=== PATIENT | female | born 1995 | race Caucasian/White ===

== ENCOUNTER 2019-11-18 01:30 | Outpatient (CLI) | payer MEDICAID, SELFPAY ==
[2019-11-18 01:42] VITALS: BP 120/71; PULSE 84; BMI 34.4
[2019-11-18 01:51] VITALS: RESP 18; TEMP 36.7
[2019-11-18 02:07] VITALS: BP 0/0
[2019-11-18 02:08] VITALS: BP 127/67; PULSE 94
== END 2019-11-18 02:20 | disposition home or self-care (01) ==
LOC: OPOB 01:38 → OBGYN 02:18 → OPOB 08:17
PROVIDERS: Family Provider Family Medicine; PCP Nurse Practitioner; Visit Provider Family Medicine
DX: O26.899 Other specified pregnancy related conditions, unspecified trimester (principal); Z3A.00 Weeks of gestation of pregnancy not specified; R10.9 Unspecified abdominal pain
CPT/HCPCS: 99211

== ENCOUNTER 2019-11-19 13:41 | Inpatient (IN) | payer MEDICAID, SELFPAY ==
[2019-11-19] VITALS (80 sets, daily range): BP systolic 0–136; BP diastolic 0–81; PULSE 58–128; RESP 17; TEMP 36.5–36.9; O2SAT 99–100; BMI 34.0
[2019-11-19 12:46] LABS: Nitrazine Paper, PH Inconclusive
[2019-11-19 13:22] LABS: Actim Prom Positive
[2019-11-19] MEDS: lactated ringers 1,000 ML 999 ML IV ×2 (14:17→15:31)
[2019-11-19] MEDS: alum-mag-hydroxide-sime 30 mL UDC PO (14:17)
[2019-11-19 15:08] LABS: Basophils % 0.3 %; Eosinophils # 0.1 10^3/uL (0.0-0.8); Eosinophils % 1.1 %; Hematocrit 28.6 % (37.0-47.0); Hemoglobin 8.8 g/dL (11.5-15.3); Lymphocytes # 1.8 10^3/uL (0.8-4.8); Lymphocytes % 15.6 %; Mean Corpuscular HGB Conc 30.8 g/dL (30.0-36.0); Mean Corpuscular Volume 77.9 fL (81-99); Mean Platelet Volume 12.5 fL (7.4-10.4); Monocytes # 0.9 10^3/uL (0.2-0.9); Monocytes % 7.6 %; Neutrophils # 8.4 10^3/uL (1.8-7.7); Neutrophils % 74.6 %; Nucleated Red Blood Cells % 0 %; Platelet Count 223 10^3/cmm (130-400); Red Blood Count 3.67 10^6/uL (4.1-5.3); Red Cell Distribution Width 15.2 % (12.1-15.1); White Blood Count 11.3 10^3/uL (4.0-10.0)
[2019-11-19] MEDS: ondansetron 2 mg/ML SDV 2 mL 4 MG IVP (15:58)
[2019-11-19] MEDS: oxytocin 30 UNIT/500 ML BAG IV (16:01)
--- NOTE | 2019-11-19 16:07 | P.ANESASSM_ITS ---
Pre-Anesthetic Assessment Pre-Anesthetic Assessment: Height/Weight: Height 1.57 m Weight 84.368 kg Temp Pulse Resp BP Pulse Ox 98.2 F 102 H 17 115/66 100 11/19/19 15:35 11/19/19 16:04 11/19/19 11:57 11/19/19 16:04 11/19/19 15:44 Preop Diagnosis: IUP Proposed Procedure: Labor epidural Was Beta James taken within 24 hours: N/A Last intake: 1000 Social: Social History: No alcohol and No tobacco Exam: Pre-Anes Outpt Exam: alert, oriented x 3 and clear to auscultation bilaterally Airway: Submandibular: WNL Cervical ROM: WNL MP: 2 Dentition: Full Pulmonary: Pulmonary: None reported CV/HEM: CV/HEM: None reported : : None reported Hepatic: Hepatic: None reported GI: GI: GERD Metabolic: Metabolic: None reported Musc/skel: Musc/skel: Scoliosis (mild) and None reported Neuropsych: Neuropsych: None reported Anesthetic Plan: ASA status: 2 Anesthesia: Regional (specify below) (epidural) Meds/Allergies Current Medications: Current Medications Generic Name Dose Route Start Last Admin Trade Name Freq PRN Reason Stop Dose Admin Al Hydrox/Mg [place] x/Simethicone 30 ml 11/19/19 13:30 11/19/19 14:17 Maalox PO 30 ml Q4H PRN Administration INDIGESTION Lactated Ringer's 1,000 mls @ 999 m ls/hr 11/19/19 13:30 11/19/19 15:51 Lactated Ringers IV 125 mls/hr .Q1H1M PRN Infusion ANESTHESIA Ondansetron HCl 4 mg 11/19/19 13:30 11/19/19 15:58 Zofran IVP 4 mg Q4H PRN Administration NAUSEA AND VOMITI NG PFSH Anesthesia Female Reproductive History: : 2 Data Anesthesia CBC & Chem 7: 11/19/19 14:17 Other Labs: Laboratory Results - last 48 hr 11/19/19 11/19/19 12:00 14:17 WBC 11.3 H RBC 3.67 L Hgb 8.8 L Hct 28.6 L MCV 77.9 L MCH 24.0 L MCHC 30.8 RDW 15.2 H Plt Count 223 MPV 12.5 H Neut % (Auto) 74.6 Lymph % (Auto) 15.6 [place] % (Auto) 7.6 Eos % (Auto) 1.1 Baso % (Auto) 0.3 Neut # (Auto) 8.4 H Lymph # (Auto) 1.8 [place] # (Auto) 0.9 Eos # (Auto) 0.1 Baso # (Auto) 0.0 Nucleated RBC % (auto) 0 Nucleated RBCs # 0.0 Insulin-like GF I Positive Cardiac Studies: No Data to Display Anesthesia Procedures Epidural: Time Out Performed: Yes Consents Signed: Procedure Consent Consent: from patient, risks and benefits reviewed and patient agrees to proceed Lumbar Level: L3-L4 Epidural position: sitting Epidural procedure: sterile prep of area, 1% lidocaine to numb the area (5), 18 g needle, negative for paresthesia passed, neg for paresthesia, test dose given, 1.5% xylocaine 1:200k epi (5), 0.2% Ropivacaine bolus ml (5), placed PCEA (5cc q10min x 3), no systemic response, sterile dressing applied, L.U.D. no apparent complications and 0.2% Ropiavacaine @ mls/hr (11) Additional Comments: Called to OB for epidural placement, pt evaluated and assessed for placement and explained procedure. Labs reviewed. Pt agrees to proceed. placed to 5cm in space and tolerated well. Bolused over 7 min BP dropped to 83 SBP and nauseated. Given 15mg IV ephedrine. BP returned to baseline per Nursing charted vitals. monitored for 15 more minutes after initial BP stabilization. Last BP 122/63 . Pain much improved.
[2019-11-19] MEDS: famotidine 20 mg Tablet PO (16:52)
--- NOTE | 2019-11-19 19:43 | PC.NURSE ---
Patient placed in left lateral with peanut ball between ankles.
--- NOTE | 2019-11-19 22:45 | P.PCNOB_ITS ---
Delivery Note: Date of delivery: November 19, 2019 Pre-delivery diagnoses: 24-year-old 2 para 1-0-0-1 at 38 weeks estimated gestational age presenting with spontaneous rupture of membranes Post-delivery diagnoses: Status post spontaneous vaginal delivery Procedure: Spontaneous vaginal delivery Op report anesthesia: Epidural Delivering Physician: Napoleon Morejon Estimated blood loss (mL): 50 Delivery: DELIVERY: The patient progressed to complete without difficulty. She delivered a female with a weight of 7 pounds 6 ounces with Apgars of 9, 10. The baby was delivered from t The cord was then clamped and cut approximately 60 seconds after delivery.. There was no nuchal cord. There was no meconium. The placenta and 3 vessel cord were delivered intact shortly thereafter. The perineum and vaginal vault were carefully examined. No lacerations were noted. Both the mother and the baby were in stable condition. Post-Delivery Status: Good Coding Level of Care Code Acute Dater Assembler for Ganesh Hagen
[2019-11-20] VITALS (18 sets, daily range): BP systolic 0–127; BP diastolic 0–80; PULSE 83–102; RESP 16–18; TEMP 36.3–36.8; O2SAT 97–98
[2019-11-20] MEDS: HYDROcodone-acetaminophen 5-325 mg Tablet PO ×5 (01:31→22:34)
[2019-11-20] MEDS: ferrous sulfate EC 325 mg Tablet PO (08:14)
[2019-11-20] MEDS: docusate sodium 100 mg Capsule PO ×2 (08:15→17:53)
[2019-11-20] MEDS: prenatal vitamin Capsule 1 CAP PO (08:15)
[2019-11-20] MEDS: famotidine 20 mg Tablet PO (09:25)
--- NOTE | 2019-11-20 10:09 | PM.OBGYPN ---
SEISMOMETER OPERATOR Subjective Subjective: Interval history: The patient is doing very well. Her bleeding has been appropriate. Her pain has been reasonably well controlled. She is breast-feeding reasonably. She is getting some assistance from the consultants. She has no concerns. Labor: Station: +1 Amniotic Membrane Status: Ruptured Monitor Mode: External Contraction Pattern: Regular Status: Category l Vitals/I&O/Wt Last Vital Signs Temp 97.4 F L 11/20/19 08:46 Pulse 101 H 11/20/19 08:46 Resp 18 11/20/19 08:46 BP 110/80 11/20/19 08:46 Pulse Ox 98 11/20/19 08:46 11/19/19 11/20/19 11/20/19 22:59 06:59 14:59 Intake Total 1351.567 / 1351.567 Output Total 2100 / 2100 Balance 1351.567 / 1351.567 -2100 / -748.433 Weight last 48 hrs Weight 186 lb Physical Exam Narrative: EXAM NARRATIVE: The patient is alert. She appears comfortable. Her heart has a regular rate and rhythm with no murmurs appreciated. Lungs are clear to auscultation bilaterally. Her fundus is firm and below the umbilicus. Urinary Catheter Management^: Mota: Cath Placed During This Visit: yes Reason for Continuing Indwelling Catheter: Accurate Measurement of Urinary Output in Critically Ill Patients Urinary Catheter Date of Insertion: 11/19/19 Urinary Catheter Time of Insertion: 16:50 Data : 11/19/19 14:17 Attestations Medical Necessity Statement*: Routine care. I anticipate she will be discharged tomorrow. Coding Level of Care Code Acute Machine Sizer for Ganesh Hagen
[2019-11-20 10:51] LABS: Hematocrit 27.2 % (37.0-47.0); Hemoglobin 8.3 g/dL (11.5-15.3); Mean Corpuscular HGB Conc 30.5 g/dL (30.0-36.0); Mean Corpuscular Hemoglobin 24.2 pg (28.0-34.0); Mean Corpuscular Volume 79.3 fL (81-99); Mean Platelet Volume 12.3 fL (7.4-10.4); Platelet Count 201 10^3/cmm (130-400); Red Blood Count 3.43 10^6/uL (4.1-5.3); Red Cell Distribution Width 15.1 % (12.1-15.1); White Blood Count 12.6 10^3/uL (4.0-10.0)
--- NOTE | 2019-11-20 13:38 | PC.NURSE ---
Nurse called to patient room for request of pain medication. Pain medication was brought to the patient's room, and patient stated she was having pain on her whole right side, that wasn't getting better even with the medication. This real estate underwriter palpated patient's right abdomen, and questioned if the palpation was hurting. Patient expressed the palpation of her abdomen was causing pain, and that it was hurting more when the palpation was released than when pressure was applied. Palpated patient's right side of her back, where she expressed pain upon palpation.
[2019-11-21 05:15] VITALS: BP 128/86; PULSE 87; RESP 18; TEMP 36.7; O2SAT 98
[2019-11-21] MEDS: HYDROcodone-acetaminophen 5-325 mg Tablet PO ×2 (05:18→09:52)
--- NOTE | 2019-11-21 06:31 | CT_ITS ---
WS: [id number] CT scan of the abdomen and pelvis with IV contrast. Additional two-dimensional coronal and sagittal r econstruction was performed. 11/21/2019 Clinical Data: RLQ rebound tenderness Comparison: None. DLP: 814.[address] scans at [facility] use at least one of these dose optimization techniques: automat ed exposure control; mA and/or kV adjustment per patient size (includes targeted exams where dose is matched to clinical indication); or iterative reconstruction. Findings: The lower lungs show no nodules, masses or effusions. The liver, gallbladder, spleen, adrenal glands and pancreas are normal. The kidneys show equal bilateral contrast excretion with no cyst or masses. There is a 0.3 cm central nonobstructing left renal calculus The abdominal aorta is normal in size. No appendicitis or diverticulitis is seen. The stomach, small bowel and colon are unremarkable. No ab scess, adenopathy, ascites, mass, obstruction or free air is seen. The bladder is unremarkable. No inguinal hernia is seen. The uterus is enlarged measuring 14.8 x 18.0 cm consistent with patient's status, delivering 2 days ago. The bones of the lower thorax, lumbar spine, pelvis, and hips are normal. CT/CT abdomen pelvis w con* [id number] Impression: 1. Negative for acute intra-abdominal or pelvic abnormalities. 2. Nonobstructing 0.3 cm central left ureteral calculus. 3. Enlarged uterus.
--- NOTE | 2019-11-21 06:33 | PC.NURSE ---
Dr. Morejon notified of pain
--- NOTE | 2019-11-21 06:35 | PC.NURSE ---
Dr. Morejon in pts. room
[2019-11-21 07:22] LABS: Basophils # 0.1 10^3/uL (0.0-0.1); Basophils % 0.5 %; Eosinophils # 0.2 10^3/uL (0.0-0.8); Eosinophils % 1.7 %; Hematocrit 27.7 % (37.0-47.0); Hemoglobin 8.3 g/dL (11.5-15.3); Lymphocytes # 2.8 10^3/uL (0.8-4.8); Lymphocytes % 23.3 %; Mean Corpuscular Hemoglobin 23.6 pg (28.0-34.0); Mean Corpuscular Volume 78.7 fL (81-99); Mean Platelet Volume 11.3 fL (7.4-10.4); Monocytes % 8.5 %; Neutrophils # 7.8 10^3/uL (1.8-7.7); Neutrophils % 65.2 %; Nucleated Red Blood Cells % 0 %; Platelet Count 194 10^3/cmm (130-400); Red Blood Count 3.52 10^6/uL (4.1-5.3); Red Cell Distribution Width 15.2 % (12.1-15.1)
[2019-11-21 07:32] LABS: Add Urine Microscopic? YES; Bilirubin Urine Neg (NEGATIVE); Blood Urine 3+ (Negative); Glucose Urine UA Norm (Normal); Ketones Urine Negative (Negative); Leukocyte Esterase Urine Trace (Negative); Nitrate Urine Negative (Negative); Protein Urine 1+ (Negative); Urine Appearance Hazy (CLEAR); Urine Color Straw (Yellow); Urobilinogen Urine Norm (Negative); pH Urine 5 (5-7)
[2019-11-21 07:39] LABS: RBC Urine 15-25 /hpf (0-2); Squamous Epithelial Cell Urine 15-25 (0-5); WBC Urine 15-25 /hpf (0-5)
[2019-11-21 07:40] LABS: Add Urine Culture? No; Bacteria Urine 1+; Mucus Urine TRACE
[2019-11-21] MEDS: iohexol 300 mg/mL 100 mL Btl IV (07:56)
[2019-11-21] MEDS: ferrous sulfate EC 325 mg Tablet PO (09:52)
[2019-11-21] MEDS: docusate sodium 100 mg Capsule PO (09:52)
[2019-11-21] MEDS: prenatal vitamin Capsule 1 CAP PO (09:52)
[2019-11-21] MEDS: famotidine 20 mg Tablet PO (09:52)
[2019-11-21 12:17] VITALS: BP 118/80; PULSE 102; RESP 18; TEMP 36.7; O2SAT 98
[2019-11-21 12:19] VITALS: BP 118/80; PULSE 102; RESP 18; TEMP 36.7; O2SAT 98
--- NOTE | 2019-12-12 17:51 | P.DS_ITS ---
Discharge Providers STERILE PREPARATION TECHNICIAN Date of Admission: 11/19/19 13:41 Date of Discharge: 11/21/19 Attending Provider at Admission: Napoleon Morejon MD Attending Provider at Discharge: Napoleon Morejon MD Primary Care Provider: COLT Zhou Diagnoses at Discharge Discharge Diagnosis (1) Status post vaginal delivery: Status: Acute (2) Term : Status: Acute Reason for Visit Reason for Visit: Reason For Visit: vag discharge Hospital Course Hospital Course: The 38 week female presented to the hospital in active labor. She had an unremarkable delivery of a healthy term . Her course was also unremarkable. Her bleeding was within normal limits. She did have RLQ abdominal pain that was associated with rebound tenderness. A CT was ordered and found to be negative. Her hgb was a little above 8 . She breastfed well. Information Peripartum Data: Delivery Method: Vaginal Physical Exam Const: COMMON NORMALS: no apparent distress and oriented x3 GENERAL APPEARANCE: cooperative, comfortable and well developed HENMT: COMMON NORMALS: normocephalic and moist oral mucous membranes HEAD & SCALP: normocephalic Chest: COMMONS NORMALS: inspection of chest normal Resp: COMMON NORMALS: normal respiratory effort and clear to auscultation bilaterally AUSCULTATION: clear to auscultation bilaterally Cardio: COMMON NORMALS: regular rate, regular rhythm, no gallops, no murmurs and no rub RATE: regular rate RHYTHM: regular rhythm Extremity: COMMON NORMALS: normal to inspection Neuro: COMMON NORMALS: oriented x3 and no focal motor deficits Skin: COMMON NORMALS: no rashes or lesions noted GENERAL SKIN EXAM: no rashes or lesions noted Urinary Catheter Management^: Mota: Cath Placed During This Visit: yes Reason for Continuing Indwelling Catheter: Accurate Measurement of Urinary Output in Critically Ill Patients Urinary Catheter Date of Insertion: 11/19/19 Urinary Catheter Time of Insertion: 16:50 Discharge Data Data Completed and Pending: Completed Studies During Hospitalization Category Date Time Status CT abdomen pelvis w con* [id number] Rout ine Cat Scan 11/21/19 06:31 Completed Vitals: Last Vital Signs Temp 98.1 F 11/21/19 12:19 Pulse 102 H 11/21/19 12:19 Resp 18 11/21/19 12:19 BP 118/80 11/21/19 12:19 Pulse Ox 98 11/21/19 12:19 Discharge Plan Discharge Patient Disposition: Home, Self-Care Condition: Stable Prescriptions: New ibuprofen 800 mg Tablet 800 mg PO TID Qty: 30 RF: 0 hydrocodone-acetaminophen 5-325 mg Tablet 1 - 2 tab PO Q4H PRN (Reason: Moderate To Severe Pain) Qty: 20 RF: 0 Continued famotidine 20 mg Tablet 20 mg PO DAILY RF: 0 PNV [id number] fumarate-FA [] 28 mg iron- 800 mcg Tablet 1 tab PO DAILY RF: 0 Discharge Orders: Discharge Order (Routine); Ordered 11/21/19 Ordered By: Napoleon Morejon Referrals: Napoleon Morejon MD [Family Provider] - 6 Weeks (Mom's check up is scheduled for 01-06-2020 at 2:[address] Morejon.) Discharge Diet: Usual diet Discharge Activity: Limit activity as instructed Patient Instructions: Famotidine (By mouth), Hydrocodone/Acetaminophen (By mouth), Ibuprofen (By mouth), Vitamins (By mouth), Vaginal Delivery (DC), OB Discharge Report, OB Food/Drug Interaction Guide, OB Care at Home, OB Home Care, OB Proud Parent Packet, OB Vaginal Deliveries Discharge Date/Time: 11/21/19 12:39 Discharge Attestations STERILE PREPARATION TECHNICIAN Time Spent in Discharge Care*: less than 30 min Coding Level of Care Code Acute Fisher Diver Net for Chg Fwd Diagnoses Status post vaginal delivery Term Z34.90
== END 2019-11-21 12:39 | disposition home or self-care (01) | DRG 807 ==
LOC: OBGYN 11-21 09:21 → OPOB 11-21 14:22
PROVIDERS: Admitting Provider Family Medicine; Family Provider Family Medicine; PCP Nurse Practitioner; Visit Provider Family Medicine
DX: O24.419 Gestational diabetes mellitus in pregnancy, unspecified control (principal); Z37.0 Single live birth; K21.9 Gastro-esophageal reflux disease without esophagitis; O99.619 Diseases of the digestive system complicating pregnancy, unspecified trimester; Z3A.38 38 weeks gestation of pregnancy; O99.89 Other specified diseases and conditions complicating pregnancy, childbirth and the puerperium; M41.9 Scoliosis, unspecified
CPT/HCPCS: 12345; 36415; 51702; 59025; 59409; 74177; 81001; 83986; 84112; 85025; 85027; 90471; 90686; 96372; 96374; 96375; 99211; J2405; J2795; Q9967

== ENCOUNTER → 2020-01-31 15:53 | Outpatient (BNVA) | payer MEDICAID, SELFPAY | PROVIDERS: Family Provider Family Medicine; PCP Nurse Practitioner; Visit Provider Registered Nurse | DX: Z30.09 Encounter for other general counseling and advice on contraception (principal); F32.9 Major depressive disorder, single episode, unspecified | CPT/HCPCS: 81025 ==

== ENCOUNTER 2022-05-25 15:36 | Emergency (ER) | payer MEDICAID, SELFPAY ==
[2022-05-25 15:45] VITALS: BP 119/80; PULSE 93; RESP 16; TEMP 36.9; O2SAT 95; BMI 28.9
--- NOTE | 2022-05-25 16:23 | ED_ITS ---
HPI - Weakness General: Chief complaint: Weakness Stated complaint: 14 wks preg, dehydrated Time Seen by Provider: 05/25/22 15:39 Source: patient Mode of arrival: ambulatory Limitations: no limitations History of Present Illness: 26-year-old female who is currently 14 weeks states she has had vomiting throughout the whole . States she has tried Phenergan and Zofran with minimal relief states over the last 2 to 3 days her vomiting is worsened states has been having some fatigue and feels like she is dehydrated. She denies any abdominal pain denies any diarrhea denies any fevers. She denies any dysuria or vaginal bleeding. Associated symptoms: Reports nausea and vomiting; Denies chest pain, dysuria, easy bruising or headache(s) Review of Systems Const: Reports: fatigue Eyes: Denies: blurry vision or eye discomfort ENMT: Denies: throat pain or dental pain Card: Denies: chest pain Resp: Denies: dyspnea GI: Reports: nausea and vomiting : Denies: dysuria Musc: Denies: neck pain or back pain Skin/Breast: Denies: rash Neuro: Denies: headache(s) Psych: Denies: depression Raza/Lymph: Denies: easy bruising All/Imm: Denies: urticaria PFSH ED PFSH: Medical History (Updated 05/25/22 @ 16:46 by Yaima Jamil MD) Social History Current gender identity: Female Physical Exam Const: COMMON NORMALS: no acute distress, patient oriented x3 and healthy appearing HENMT: COMMON NORMALS: normocephalic and atraumatic HEAD & SCALP: normocephalic and atraumatic Eye: COMMON NORMALS: Equal, round and reactive pupils present and EOMs intact bilaterally PUPIL: Yes Equal, round and reactive pupils present Neck/C-Spine: COMMON NORMALS: full ROM and supple Chest: COMMONS NORMALS: normal inspection of the chest and normal palpation of entire chest wall Resp: COMMON NORMALS: normal respiratory effort, No retractions, No use of accessory muscles and clear to auscultation bilaterally AUSCULTATION: clear to auscultation bilaterally Cardio: COMMON NORMALS: regular rate, regular rhythm and No murmurs present (Cardio) RATE: regular rate RHYTHM: regular rhythm GI: COMMON NORMALS: Normal to inspection, nondistended, normoactive bowel sounds present, Soft to palpation, non-tender and no masses PALPATION: Yes Soft to palpation Extremity: COMMON NORMALS: normal to inspection and full ROM Neuro: COMMON NORMALS: patient oriented x3, moves all extremities and no focal motor deficits Psych: COMMON NORMALS: mental status grossly normal, Normal thought process present and cooperative THOUGHT PROCESS: Normal thought process present Skin: COMMON NORMALS: no rashes or lesions noted and no wounds GENERAL SKIN EXAM: no rashes or lesions noted Course Vital Signs: Vital signs: Vital Signs Temperature 98.5 F 05/25/22 15:45 Pulse Rate 93 05/25/22 15:45 Respiratory Rate 16 05/25/22 15:45 Blood Pressure 119/80 05/25/22 15:45 Pulse Oximetry 95 05/25/22 15:45 Oxygen Delivery Me thod 05/25/22 15:45 MDM - Weakness Medical Decision Making Patient presents here with hyperemesis gravidarum she feels much improved here after IV Reglan and IV fluids she does have some dehydration but feels improved after fluids her exam here is benign did a bedside ultrasound showed IUP consistent with dates with heart rate of 148 we will prescribe patient p.o. Reglan for home she is to follow-up with her PCP and return if worsening she understands agrees to plan. Lab Data : 05/25/22 16:31 05/25/22 16:31 Laboratory Results WBC 8.1 10^3/uL (4.0-10.0) 05/25/22 16:31 RBC 4.29 10^6/uL (4.1-5.3) 05/25/22 16:31 Hgb 12.2 g/dL (11.5-15.3) 05/25/22 16:31 Hct 36.1 % (37.0-47.0) L 05/25/22 16:31 MCV 84.1 fl (81-99) 05/25/22 16:31 MCH 28.4 pg (28.0-34.0) 05/25/22 16:31 MCHC 33.8 g/dL (30.0-36.0) 05/25/22 16:31 RDW 14.9 % (12.1-15.1) 05/25/22 16:31 Plt Count 234 10^3/cmm (130-400) 05/25/22 16: MPV 11.0 fL (7.4-10.4) H 05/25/22 16:31 Neut % (Auto) 71.7 % 05/25/22 16: Lymph % (Auto) 19.5 % 05/25/22 16: [place] % (Auto) 7.4 % 05/25/22 16: Eos % (Auto) 0.9 % 05/25/22 16: Baso % (Auto) 0.4 % 05/25/22 16: Neut # (Auto) 5.79 10^3/uL (1.8-7.7) 05/25/22 16: Lymph # (Auto) 1.6 10^3/uL (0.8-4.8) 05/25/22 16: [place] # (Auto) 0.6 10^3/uL (0.2-0.9) 05/25/22 16: Eos # (Auto) 0.1 10^3/uL (0.0-0.8) 05/25/22 16: Baso # (Auto) 0.0 10^3/uL (0.0-0.1) 05/25/22 16: Nucleated RBC % (auto) 0 % 05/25/22 16: Nucleated RBCs # 0.0 /100WBC 05/25/22 16: Sodium 133 mmol/L (136-145) L 05/25/22 16: Potassium 3.6 mmol/L (3.5-5.1) 05/25/22 16: Chloride 98 mmol/L (98-107) 05/25/22 16: Carbon Dioxide 22 mmol/L (22-29) 05/25/22 16: Anion Gap 16.6 (5-19) 05/25/22 16: BUN 10 mg/dL (6-20) 05/25/22 16: Creatinine 0.4 mg/dL (0.5-0.9) L 05/25/22 16: GFR Calculation 194.5 mL/min (90-130) H 05/25/22 16: Glucose 103 mg/dL (65-115) 05/25/22 16: Calculated Osmolality 275 mOsm/kg (285-295) L 05/25/22 16: Calcium 9.6 mg/dL (8.5-10.5) 05/25/22 16: Total Bilirubin 0.2 mg/dL (0.15-1.2) 05/25/22 16: AST 24 U/L (0-32) 05/25/22 16: ALT 25 U/L (0-33) 05/25/22 16: Alkaline Phosphatase 77 U/L (35-105) 05/25/22 16: Total Protein 7.3 g/dL (6.6-8.7) 05/25/22 16: Albumin 4.3 g/dL (3.5-5.2) 05/25/22 16: Globulin 3.0 g/dL (1.3-4.6) 05/25/22 16: Urine Color Dark yellow (Yellow) 05/25/22 16: Urine Appearance Sl hazy (CLEAR) 05/25/22 16: Urine pH 5 (5-7) 05/25/22 16:26 Ur Specific [place] 1.025 (1.005-1.030) 05/25/22 16: Urine Protein Trace (Negative) 05/25/22 16: Urine Glucose (UA) Norm (Normal) 05/25/22 16: Urine Ketones 3+ (Negative) H 05/25/22 16:26 Urine Blood 3+ (Negative) H 05/25/22 16: Urine Nitrate Negative (Negative) 05/25/22 16: Urine Bilirubin Neg (Negative) 05/25/22 16: Urine Urobilinogen 1 mg/dL (Negative) H 05/25/22 16:26 Ur Leukocyte Esterase Negative (Negative) 05/25/22 16: Urine RBC 25-40 /hpf (0-2) H 05/25/22 16: Urine WBC 5-10 /hpf (0-5) H 05/25/22 16: Ur Squamous Epith Cells 10-15 /hpf (0-5) H 05/25/22 16: Amorphous Sediment Not Reportable 05/25/22 16: Urine Bacteria 1+ /hpf (NONE) H 05/25/22 16: Urine Mucus 1+ /hpf 05/25/22 16:26 Discharge Plan Discharge Patient Disposition: Home Clinical Impression: Hyperemesis gravidarum Condition: Stable Prescriptions: New Reglan 10 mg tablet 10 mg PO Q6H PRN (Reason: nausea and vomiting) Qty: 20 0RF No Action Balziva (28) 0.4-35 mg-mcg tablet 1 tab PO DAILY Qty: 168 0RF buspirone 10 mg tablet 10 mg PO BID 30 Days Qty: 60 0RF Discharge Orders: Discharge ED (Routine); Ordered 05/25/22 Ordered By: Yaima Jamil Referrals: Napoleon Morejon MD [Primary Care Provider] - 1-3 days Discharge Diet: Advance as tolerated Discharge Activity: Resume usual activity Patient Instructions: Hyperemesis Gravidarum (ED) Coding Level of Care Code ED Steel Unloader for Laneyg Fwd Exam Comprehensive
[2022-05-25] MEDS: sodium chloride 0.9% 1,000 ML 999 ML IV ×2 (16:41→17:24)
[2022-05-25 16:42] LABS: Basophils % 0.4 %; Eosinophils # 0.1 10^3/uL (0.0-0.8); Eosinophils % 0.9 %; Hematocrit 36.1 % (37.0-47.0); Hemoglobin 12.2 g/dL (11.5-15.3); Lymphocytes # 1.6 10^3/uL (0.8-4.8); Lymphocytes % 19.5 %; Mean Corpuscular HGB Conc 33.8 g/dL (30.0-36.0); Mean Corpuscular Hemoglobin 28.4 pg (28.0-34.0); Mean Corpuscular Volume 84.1 fl (81-99); Monocytes # 0.6 10^3/uL (0.2-0.9); Monocytes % 7.4 %; Neutrophils # 5.79 10^3/uL (1.8-7.7); Neutrophils % 71.7 %; Nucleated Red Blood Cells % 0 %; Platelet Count 234 10^3/cmm (130-400); Red Blood Count 4.29 10^6/uL (4.1-5.3); Red Cell Distribution Width 14.9 % (12.1-15.1); White Blood Count 8.1 10^3/uL (4.0-10.0)
[2022-05-25] MEDS: metoclopramide 5 mg/mL SDV 2 mL 10 MG IVP (16:42)
[2022-05-25] MEDS: diphenhydrAMINE 50 mg/mL SDV 1mL IVP (16:42)
[2022-05-25 17:08] LABS: Add Urine Microscopic? YES; Bilirubin Urine Neg (Negative); Blood Urine 3+ (Negative); Glucose Urine UA Norm (Normal); Ketones Urine 3+ (Negative); Leukocyte Esterase Urine Negative (Negative); Nitrate Urine Negative (Negative); Protein Urine Trace (Negative); Specific Gravity, Urine 1.025 (1.005-1.030); Urine Appearance SL Hazy (CLEAR); Urine Color Dark Yellow (Yellow); Urobilinogen Urine 1 mg/dL (Negative); pH Urine 5 (5-7)
[2022-05-25 17:11] LABS: Add Urine Culture? No; Bacteria Urine 1+ /hpf; Mucus Urine 1+ /hpf; RBC Urine 25-40 /hpf (0-2)
[2022-05-25 17:11] LABS: Alanine Aminotransferase 25 U/L (0-33); Albumin Level 4.3 g/dL (3.5-5.2); Alkaline Phosphatase 77 U/L (35-105); Anion Gap 16.6 (5-19); Aspartate Amino Transferase 24 U/L (0-32); Blood Urea Nitrogen 10 mg/dL (6-20); Calcium 9.6 mg/dL (8.5-10.5); Carbon Dioxide 22 mmol/L (22-29); Chloride 98 mmol/L (98-107); Glomerular Filtration Rate 194.5 mL/min (90-130); Glucose 103 mg/dL (65-115); Osmolality Calculated 275 mOsm/kg (285-295); Potassium 3.6 mmol/L (3.5-5.1); Sodium 133 mmol/L (136-145); Total Bilirubin 0.2 mg/dL (0.15-1.2); Total Protein 7.3 g/dL (6.6-8.7)
[2022-05-25 17:40] VITALS: BP 122/68; RESP 14; O2SAT 99
[2022-05-25 17:57] VITALS: BP 122/68; RESP 14; O2SAT 99
== END 2022-05-25 17:59 | disposition home or self-care (01) ==
PROVIDERS: Emergency Provider Emergency Medicine; PCP Family Medicine
DX: O21.0 Mild hyperemesis gravidarum (principal); Z3A.14 14 weeks gestation of pregnancy
CPT/HCPCS: 80053; 81001; 85025; 96361; 96374; 96375; 99284; J1200; J2765; J7030

== ENCOUNTER 2022-11-07 21:28 | Inpatient (IN) | payer MEDICAID, SELFPAY ==
[2022-11-07] VITALS (31 sets, daily range): BP systolic 101–124; BP diastolic 55–74; PULSE 72–108; RESP 16–18; TEMP 35.9; O2SAT 97–100; BMI 30.6
[2022-11-07 21:00] LABS: Nitrazine Paper, PH Inconclusive
[2022-11-07 21:05] LABS: Actim Prom Positive
[2022-11-07 21:54] LABS: Basophils % 0.3 %; Eosinophils # 0.1 10^3/uL (0.0-0.8); Eosinophils % 0.7 %; Hematocrit 31.3 % (37.0-47.0); Hemoglobin 9.5 g/dL (11.5-15.3); Lymphocytes # 2.1 10^3/uL (0.8-4.8); Lymphocytes % 17.9 %; Mean Corpuscular HGB Conc 30.4 g/dL (30.0-36.0); Mean Corpuscular Hemoglobin 23.7 pg (28.0-34.0); Mean Corpuscular Volume 78.1 fl (81-99); Monocytes # 0.7 10^3/uL (0.2-0.9); Monocytes % 5.5 %; Neutrophils # 8.96 10^3/uL (1.8-7.7); Neutrophils % 75.3 %; Nucleated Red Blood Cells % 0 %; Platelet Count 222 10^3/cmm (130-400); Red Blood Count 4.01 10^6/uL (4.1-5.3); Red Cell Distribution Width 14.3 % (12.1-15.1); White Blood Count 11.9 10^3/uL (4.0-10.0)
[2022-11-07] MEDS: lactated ringers 1,000 ML 999 ML IV ×2 (22:10→23:15)
[2022-11-07] MEDS: hyDROXYzine 25 mg Capsule 50 MG PO (22:36)
--- NOTE | 2022-11-07 22:55 | ANES.PREANE2 ---
Pre-Anesthetic Assessment Height/Weight: Height 1.6 m Weight 78.471 kg Temp Pulse Resp BP O2 Del Method 96.6 F L 86 18 124/73 11/07/22 20:42 11/07/22 21:51 11/07/22 21:20 11/07/22 21:51 11/07/22 22:33 Preop Diagnosis: IUP Familial anesthetic complications: None Was Beta James taken within 24 hours: N/A Was Clonidine taken within 24 hours: N/A Social Tobacco (Vape) and No alcohol Exam alert, oriented x 3, clear to auscultation bilaterally and regular rate & rhythm Airway Submandibular: within normal limits Cervical ROM: within normal limits Mallampati: Class III Dentition: full History/ROS No significant history except as noted and No significant complaints Pulmonary None reported CV/HEM None reported None reported Hepatic None reported GI Gastroesophageal Reflux Disease Metabolic None reported Musc/skel Lower Back Pain and Scoliosis Neuropsych Anxiety and Depression Anesthetic Plan ASA status: 2 Anesthesia: Anesthesia Evaluation and Regional (specify below) Risk of > 500 ml blood loss (7ml/kg in children): No Medications/Allergies Home Medications Medication Instructions Recorded Confirmed Last Taken Type norethindrone 0.4 mg-ethinyl 1 tab PO DAILY #168 tabs 01/31/20 04/03/21 Unknown Rx estradiol 35 mcg tablet (Indiova (28)) buspirone 10 mg tablet 10 mg PO BID 30 days #60 tabs 08/15/21 08/15/21 Unknown Rx metoclopramide HCl 10 mg tablet 10 mg PO Q6H PRN nausea and 05/25/22 Unknown Rx (Reglan) vomiting #20 tabs Allergies Allergy/AdvReac Type Severity Reaction Status Date / Time nut - unspecified Allergy Severe swollen Verified 08/15/21 09:37 Penicillins Allergy Unknown ALGY-Rash Verified 08/15/21 09:37 Current Medications Generic Name Dose Route Start Last Admin Trade Name Freq PRN Reason Stop Dose Admin Hydroxyzine Pamoate 50 mg 11/07/22 21:20 11/07/22 22:36 Hydroxyzine 25 Mg Capsule PO 50 mg QID PRN Administration sleep, agitation or itching Lactated Ringer's 1,000 mls @ 999 mls/hr 11/07/22 21:22 11/07/22 22:10 Lactated Ringers IV 999 mls/hr .Q1H1M PRN Administration See label comments PFSH Anesthesia Medical History (Updated 06/02/22 @ 00:01 by MIMI Sparks) Social History Current gender identity: Female Female Reproductive History : 3 Data Anesthesia 11/07/22 21:40 Short CBC 11/07/22 Range/Units 21:40 WBC 11.9 H (4.0-10.0) 10^3/uL Hgb 9.5 L (11.5-15.3) g/dL Hct 31.3 L (37.0-47.0) % MCV 78.1 L (81-99) fl Plt Count 222 (130-400) 10^3/cmm Neut % (Auto) 75.3 % Neut # (Auto) 8.96 H (1.8-7.7) 10^3/uL Cardiac Studies: No Data to Display
--- NOTE | 2022-11-07 23:25 | ANES.PROC ---
Anesthesia Procedures Procedure/Date: 11/07/22 Epidural: Time Out Performed: Yes Consents Signed: Procedure Consent and NPO Consent Consent: requested by attending/covering physician, from patient, risks and benefits reviewed and patient agrees to proceed Lumbar Level: L3-L4 Epidural position: sitting Epidural procedure: sterile prep of area (betadine), 1% lidocaine to numb the area (3 mLs), neg for paresthesia, test dose given, 1.5% xylocaine 1:200k epi (3 mL/2 mL), 0.2% Ropivacaine bolus ml (5 mLs), placed PCEA, no systemic response, sterile dressing applied, L.U.D. no apparent complications and 0.2% Ropiavacaine @ mls/hr (11 mLs/hr) Additional Comments: CROW 6 cm, catheter placed to 11cm
[2022-11-07] MEDS: alum-mag-hydroxide-sime 30 mL UDC PO (23:28)
[2022-11-08] VITALS (59 sets, daily range): BP systolic 78–146; BP diastolic 51–82; PULSE 68–121; RESP 16–18; TEMP 36.6–37.2; O2SAT 97–100
[2022-11-08] MEDS: dextrose 5%-lactated ringers 1,000 ML 125 ML IV (00:30)
[2022-11-08] MEDS: oxytocin 30 UNIT/500 ML BAG IV (01:52)
[2022-11-08] MEDS: ondansetron 2 mg/ML SDV 2 mL 4 MG IVP (03:39)
--- NOTE | 2022-11-08 05:18 | PM.OPHPUD ---
Labor & Delivery H&P Update Date of Procedure: November 08, 2022 Date H&P Performed: 11/06/22 Changes to previous documentation: Significant cervical changes since office evaluation Admission Diagnosis: 27-year-old 3 para 2-0-0-2 at 38 weeks estimated gestational age Preop diagnosis: IUP Planned procedure: Spontaneous vaginal delivery Other information: The patient is a 38-week female who presented to the hospital last night with some rupture membranes. She started having some leaking at about 1500 yesterday. When she presented to the hospital she was found to be ruptured. There is still forebag, and an amniotomy was performed. An epidural was placed. Her cervical change stagnated, and Pitocin was added for augmentation. The patient's was unremarkable otherwise. Her labs were as follows. Her blood type is O+. Her antibody screen was negative. She was found to be rubella immune. She was GBS negative. The remainder of her infectious disease profile was within normal limits. Related Problem List Diagnoses (1) 38 weeks gestation of : (2) Spontaneous rupture of membranes: A&P Assessment and plan (1) 38 weeks gestation of : I anticipate a routine labor and vaginal delivery. Status: Acute (2) Spontaneous rupture of membranes: Status: Acute
--- NOTE | 2022-11-08 05:23 | PM.DELIVERY ---
Delivery Note: Date of delivery: November 08, 2022 Pre-delivery diagnoses: 1. 27-year-old 3 para 2-0-0-2 at 38 weeks estimated gestational age Post-delivery diagnoses: Status post spontaneous vaginal delivery Procedure: Spontaneous vaginal delivery Delivering Physician: Napoleon Morejon Estimated blood loss (mL): 10 Pre-Delivery Course: The patient presented to the hospital with spontaneous rupture of membranes. An amniotomy was performed with a forebag. An epidural was placed. The patient sent did not make cervical change for several hours, and Pitocin augmentation was placed. The patient progressed to complete without difficulty. Delivery: DELIVERY: The patient progressed to complete without difficulty. She delivered a female with a weight of 6 pounds 12 ounces with Apgars of 8, 9. The baby was delivered from the KRISTEN position and placed on the mother's abdomen. The cord was then clamped and cut 1 minute after delivery. There was no nuchal cord. There was no meconium. The placenta and 3 vessel cord were delivered intact shortly thereafter. The perineum and vaginal vault were carefully examined. No lacerations were noted. Both the mother and the baby were in stable condition. Post-Delivery Status: Good A&P Assessment and plan (1) Spontaneous vaginal delivery: I anticipate routine care. (2) 38 weeks gestation of : Coding Level of Care Code Acute Code for Chg Fwd Diagnoses Spontaneous vaginal delivery O80 38 weeks gestation of Z3A.38
[2022-11-08] MEDS: docusate sodium 100 mg Capsule PO ×2 (09:05→17:07)
[2022-11-08] MEDS: prenatal vitamin Capsule 1 CAP PO (09:05)
[2022-11-08] MEDS: ibuprofen 800 mg tablet PO ×3 (09:05→21:09)
--- NOTE | 2022-11-08 09:26 | PC.NURSE ---
0825 PT UP TO BATHROOM UNABLE TO VOID BUT WAS INSTRUCTED ON [facility] AND THEN AMBULATED TO OB8 GOT A LITTLE WEIRD FEELING BUT MADE IT BACK TO BED WITHOUT DIFFICULTY. TOLD HER TO NOT GET UP WITHOUT ME, SHE VOICED UNDERSTANDING.
[2022-11-08] MEDS: HYDROcodone-acetaminophen 5-325 mg Tablet PO ×2 (17:06→23:24)
[2022-11-08] MEDS: lanolin oint 7 gm 1 APPLIC TOPICAL (21:09)
[2022-11-09 04:00] VITALS: BP 99/63; PULSE 87; RESP 16; O2SAT 98
--- NOTE | 2022-11-09 06:39 | PC.NURSE ---
MOM DID NOT RECORD INTAKE OR OUTPUT FOR MY ENTIRE SHIFT. SPOKE WITH MOM AND SHE STATED BABY HAS NURSED ON BOTH SIDES MULTIPLE TIMES AND HAS HAD WET AND POOPY DIAPERS THROUGH THE NIGHT. THIS RN HAS SEEN BABY NURSE DURING ROUNDINGS.
[2022-11-09 06:55] LABS: Hematocrit 28.4 % (37.0-47.0); Hemoglobin 8.7 g/dL (11.5-15.3); Mean Corpuscular HGB Conc 30.6 g/dL (30.0-36.0); Mean Corpuscular Hemoglobin 23.7 pg (28.0-34.0); Mean Corpuscular Volume 77.4 fl (81-99); Mean Platelet Volume 12.3 fL (7.4-10.4); Platelet Count 169 10^3/cmm (130-400); Red Blood Count 3.67 10^6/uL (4.1-5.3); Red Cell Distribution Width 14.4 % (12.1-15.1); White Blood Count 13.6 10^3/uL (4.0-10.0)
[2022-11-09] MEDS: HYDROcodone-acetaminophen 5-325 mg Tablet PO (07:13)
--- NOTE | 2022-11-09 08:00 | ANE.PACU2 ---
Inpatient post-anesthesia follow up: Airway intact: Yes Vital signs: Temperature 98.9 F Pulse Rate 87 Respiratory Rate 16 Blood Pressure 99/63 Pulse Oximetry 98 Oxygen Delivery Me thod Room Air Oxygen Flow Rate Fraction of Inspir ed Oxygen Hydration adequate: Yes Nausea and vomiting: No Pain level: 2 Mental status: Baseline
[2022-11-09] MEDS: docusate sodium 100 mg Capsule PO (09:03)
[2022-11-09] MEDS: prenatal vitamin Capsule 1 CAP PO (09:03)
[2022-11-09] MEDS: ibuprofen 800 mg tablet PO (09:04)
--- NOTE | 2022-11-09 09:35 | PM.OBGYDC ---
Discharge Providers REFINERY OPERATOR ASSISTANT Date of Admission: 11/07/22 21:28 Date of Discharge: 11/09/22 Attending Provider at Admission: Napoleon Morejon MD Attending Provider at Discharge: Napoleon Morejon MD Primary Care Provider: Napoleon Morejon MD Diagnoses at Discharge Discharge Diagnosis (1) 38 weeks gestation of : Status: Acute (2) Spontaneous rupture of membranes: Status: Acute Reason for Visit Reason for Visit: PROM, contractions Hospital Course Hospital Course The patient presented to the hospital with spontaneous rupture of membranes. An epidural was received. She progressed to complete and had an unremarkable delivery of a healthy appearing female infant. Her course was also unremarkable. Her bleeding was within normal limits. Her pain was well controlled. She breast-fed well. Information Peripartum Data: Delivery Method: Vaginal Physical Exam Narrative: The patient is alert. She appears comfortable. Her heart has a regular rate and rhythm with no murmurs appreciated. Lungs are clear to auscultation bilaterally. Her fundus is firm and below the umbilicus. Urinary Catheter Management: Mota: Cath Placed During This Visit: yes, but has since been removed by the nurse Reason for Continuing Indwelling Catheter: Decision to DC Catheter Urinary Catheter Date of Insertion: 11/08/22 Urinary Catheter Time of Insertion: 00:05 Date Urinary Catheter Removed: 11/08/22 Time Urinary Catheter Discontinued: 05:00 Discharge Data Studies Completed and Pending Laboratory Results WBC 13.6 10^3/uL (4.0-10.0) H 11/09/22 06:48 RBC 3.67 10^6/uL (4.1-5.3) L 11/09/22 06:48 Hgb 8.7 g/dL (11.5-15.3) L 11/09/22 06:48 Hct 28.4 % (37.0-47.0) L 11/09/22 06:48 MCV 77.4 fl (81-99) L 11/09/22 06:48 MCH 23.7 pg (28.0-34.0) L 11/09/22 06:48 MCHC 30.6 g/dL (30.0-36.0) 11/09/22 06:48 RDW 14.4 % (12.1-15.1) 11/09/22 06:48 Plt Count 169 10^3/cmm (130-400) 11/09/22 06:48 MPV 12.3 fL (7.4-10.4) H 11/09/22 06:48 Neut % (Auto) 75.3 % 11/07/22 21:40 Lymph % (Auto) 17.9 % 11/07/22 21:40 [place] % (Auto) 5.5 % 11/07/22 21:40 Eos % (Auto) 0.7 % 11/07/22 21:40 Baso % (Auto) 0.3 % 11/07/22 21:40 Neut # (Auto) 8.96 10^3/uL (1.8-7.7) H 11/07/22 21:40 Lymph # (Auto) 2.1 10^3/uL (0.8-4.8) 11/07/22 21:40 [place] # (Auto) 0.7 10^3/uL (0.2-0.9) 11/07/22 21:40 Eos # (Auto) 0.1 10^3/uL (0.0-0.8) 11/07/22 21:40 Baso # (Auto) 0.0 10^3/uL (0.0-0.1) 11/07/22 21:40 Nucleated RBC % (auto) 0 % 11/07/22 21:40 Nucleated RBCs # 0.0 /100WBC 11/07/22 21:40 Insulin-like GF I Positive 11/07/22 20:49 Vitals Last Vital Signs Temp 98.9 F 11/08/22 18:00 Pulse 87 11/09/22 04:00 Resp 16 11/09/22 04:00 BP 99/63 11/09/22 04:00 Pulse Ox 98 11/09/22 04:00 O2 Del Method 11/09/22 04:00 Discharge Plan Discharge Patient Disposition: Home Condition: Stable Prescriptions: New ibuprofen 800 mg Tablet 800 mg PO TID Qty: 45 0RF -U 106.5-1 mg Capsule 1 cap PO DAILY Qty: 45 0RF Discontinued Balziva (28) 0.4-35 mg-mcg tablet 1 tab PO DAILY Qty: 168 0RF buspirone 10 mg tablet 10 mg PO BID 30 Days Qty: 60 0RF metoclopramide HCl [Reglan] 10 mg tablet 10 mg PO Q6H PRN (Reason: nausea and vomiting) Qty: 20 0RF Discharge Orders: Discharge Order (Routine); Ordered 11/09/22 Ordered By: Napoleon Morejon Referrals: Napoleon Morejon MD [Primary Care Provider] - 6 Weeks Discharge Diet: Usual diet Discharge Activity: Limit activity as instructed Patient Instructions: Opioid Safety Discharge Attestations REFINERY OPERATOR ASSISTANT Time Spent in Discharge Care*: less than 30 min Coding Level of Care Code Acute Code for Chg Fwd Diagnoses 38 weeks gestation of Z3A.38 Spontaneous rupture of membranes
[2022-11-09 10:52] VITALS: BP 113/78; PULSE 78; RESP 16; TEMP 36.8; O2SAT 98
[2022-11-09] MEDS: measles,mumps,rubella pf Vial (w/diluent) 0.5 ML SUBCUT (11:10)
[2022-11-09 11:49] VITALS: BP 113/78; PULSE 78; RESP 16; TEMP 36.8; O2SAT 98
== END 2022-11-09 11:40 | disposition home or self-care (01) | DRG 807 ==
LOC: OPOB 11-08 07:20 → OBGYN 11-08 07:20
PROVIDERS: Admitting Provider Family Medicine; PCP Family Medicine; Visit Provider Family Medicine
DX: O99.334 Smoking (tobacco) complicating childbirth (principal); Z37.0 Single live birth; F17.290 Nicotine dependence, other tobacco product, uncomplicated; O99.344 Other mental disorders complicating childbirth; Z3A.38 38 weeks gestation of pregnancy; F41.9 Anxiety disorder, unspecified; K21.9 Gastro-esophageal reflux disease without esophagitis; F32.A Depression, unspecified; M41.9 Scoliosis, unspecified; O75.89 Other specified complications of labor and delivery
CPT/HCPCS: 12345; 36415; 51702; 59025; 59409; 83986; 84112; 85025; 85027; 90707; 96372; 99211; J2405; J2590; J2795; J7120; J7121

== ENCOUNTER 2024-01-24 10:45 | Inpatient (IN) | payer OTHER, MEDICAID, SELFPAY ==
[2024-01-24 10:47] VITALS: BP 143/87; PULSE 103; RESP 20; TEMP 36.8; O2SAT 98
--- NOTE | 2024-01-24 10:50 | ECG_ITS ---
[facility] Test Date: 2024-01-24 Pat Name: Clara Magana Department: Room: 131 Gender: Female Grants Administrator: : 1995 Requested By: Ayana Duffy Order Number: [id number] Le MD: Joshua Tellez M.D. Measurements Intervals [place] Rate: 64 P: 1 LA: 133 QRS: 51 QRSD: 94 T: 47 QT: 360 QTc: 372 Interpretive Statements SINUS RHYTHM WITH SINUS ARRHYTHMIA POSSIBLE RIGHT VENTRICULAR CONDUCTION DELAY [RSR (QR) IN V1/V2] No previous ECG available for comparison Electronically Signed On 01-25-2024 12:53:47 CDT by Joshua Tellez M.D. [id number]
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
[2024-01-24 11:37] LABS: HCG Qualitative Urine. Negative (Negative)
[2024-01-24 11:47] LABS: Basophils # 0.1 10^3/uL (0.0-0.1); Basophils % 0.7 %; Eosinophils % 0.6 %; Hematocrit 37.4 % (36-47); Lymphocytes # 1.4 10^3/uL (0.8-4.8); Lymphocytes % 19.8 %; Mean Corpuscular HGB Conc 31.6 g/dL (30-55); Mean Corpuscular Hemoglobin 27.6 pg (27-33); Mean Corpuscular Volume 87.6 fl (85-98); Mean Platelet Volume 11.6 fL (7.4-10.4); Monocytes # 0.4 10^3/uL (0.2-0.9); Monocytes % 5.8 %; Neutrophils # 5.25 10^3/uL (1.8-7.7); Neutrophils % 72.8 %; Nucleated Red Blood Cells % 0 %; Platelet Count 236 10^3/cmm (157-399); Red Blood Count 4.27 10^6/uL (3.85-5.65); Red Cell Distribution Width 15.1 % (12.1-15.1); White Blood Count 7.21 10^3/uL (3.29-11.43)
[2024-01-24 11:50] LABS: Amphetamines Screen Urine Negative (Negative); Barbiturates Screen Urine Negative (Negative); Benzodiazepines Screen Urine Negative (Negative); Cocaine Screen Urine Negative (Negative); Opiate Screen Urine Negative (Negative); PCP Screen Urine Negative (Negative); THC Screen Urine Positive (Negative)
[2024-01-24 11:51] LABS: Bilirubin Urine Neg (Negative); Blood Urine Neg (Negative); Glucose Urine UA Norm (Normal); Ketones Urine Negative (Negative); Leukocyte Esterase Urine Negative (Negative); Nitrate Urine Negative (Negative); Protein Urine Neg (Negative); Specific Gravity, Urine 1.015 (1.005-1.030); Urine Appearance Clear (CLEAR); Urine Color Colorless (Yellow); Urobilinogen Urine Norm (Negative); WBC Urine 0-4 /hpf (0-5); pH Urine 6.5 (5-7)
[2024-01-24 11:52] LABS: Add Urine Culture? No; Bacteria Urine TRACE /hpf
[2024-01-24 12:10] LABS: Alanine Aminotransferase 12 U/L (0-33); Albumin Level 4.6 g/dL (3.5-5.2); Alkaline Phosphatase 81 U/L (35-105); Aspartate Amino Transferase 14 U/L (0-32); Blood Urea Nitrogen 8 mg/dL (6-20); Calcium 8.8 mg/dL (8.5-10.5); Carbon Dioxide 23 mmol/L (22-29); Chloride 109 mmol/L (98-107); Creatinine Clr Calc Pharmacy 122.3455; Globulin 3.1 g/dL (1.3-4.6); Glomerular Filtration Rate 119.9 mL/min (90-130); Glucose 102 mg/dL (65-115); Osmolality Calculated 295 mOsm/kg (285-295); Sodium 143 mmol/L (136-145); Total Bilirubin 0.3 mg/dL (0.15-1.2); Total Protein 7.7 g/dL (6.6-8.7)
[2024-01-24 12:12] LABS: Acetaminophen < 5.0 ug/mL (10-30); Alcohol Level < 10 mg/dL (0-10); Salicylate < 0.3 mg/dL (3-10)
[2024-01-24] MEDS: nicotine 21 mg Patch 1 PATCH TRANSDERMA (14:20)
[2024-01-24 14:52] VITALS: PULSE 98; RESP 16; O2SAT 99
[2024-01-24 15:19] VITALS: BP 111/76; PULSE 80; RESP 16; TEMP 36.6; O2SAT 97
[2024-01-24] MEDS: neomycin-poly-bacitracin oint 28 gm 1 APPLIC TOPICAL (17:15)
[2024-01-24 20:00] VITALS: BP 120/76; PULSE 79; RESP 18; TEMP 36.6; O2SAT 95
[2024-01-24] MEDS: acetaminophen 325 mg Tablet 650 MG PO (20:19)
[2024-01-24] MEDS: trazodone 50 mg Tablet PO (23:00)
[2024-01-25 06:00] VITALS: BP 90/54; PULSE 78; RESP 16; O2SAT 96
[2024-01-25] MEDS: hyDROXYzine 25 mg Capsule 50 MG PO ×2 (08:58→14:53)
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
[2024-01-25] MEDS: nicotine 2 mg Gum BUCCAL ×3 (11:12→18:47)
[2024-01-25 14:00] VITALS: BP 102/66; PULSE 87; RESP 18; TEMP 36.7; O2SAT 99
[2024-01-25] MEDS: ibuprofen 600 mg Tablet PO (17:50)
[2024-01-25 20:04] VITALS: BP 107/68; PULSE 70; RESP 16; TEMP 36.9; O2SAT 98
[2024-01-25] MEDS: OLANZapine 5 mg TABLET PO (21:33)
[2024-01-26 06:00] VITALS: BP 101/64; PULSE 91; RESP 15; TEMP 36.8; O2SAT 98
[2024-01-26] MEDS: nicotine 21 mg Patch 1 PATCH TRANSDERMA (08:07)
[2024-01-26] MEDS: hyDROXYzine 25 mg Capsule 50 MG PO ×2 (08:44→16:20)
[2024-01-26] MEDS: neomycin-poly-bacitracin oint 28 gm 1 APPLIC TOPICAL ×2 (11:59→18:26)
--- NOTE | 2024-01-26 18:04 | P.NPUPN_ITS ---
Subjective NPU 2 Subjective: Patient presented today reporting that she is feeling a little better. She reports that the Zyprexa was very effective and helping her calm down and get a really good night sleep. We discussed the possibility of propranolol and discussed the risks, benefits and alternatives and she understood and agreed to consider it. She reported that she wanted to be tested for ADHD and that she feels that based on her assessment of herself in situations possibly the treatment of ADHD may help her considerably. She denied any side effects to the medication. Mental Status Exam 2 MSE Comments: This is an overweight versus obese white female in hospital scrubs with limited grooming and adequate eye contact. Some tattoos on exposed skin. No abnormal movements except for psychomotor agitation. Mostly cooperative with exam in mild to moderate distress. Speech was slightly increased rate rate and volume. Mood described as feeling a little better with the improved sleep, affect somewhat congruent. Thought process mostly organized. Thought content: Patient denied suicidal or homicidal ideation, there were no delusions reported or noted, she denied any auditory or visual hallucinations. Patient reported feeling irritable. She reported hearing voices when trying to sleep. She also reported anxiety and taking medication for it, which causes her to shake uncontrollably. She reported feeling paranoid, checking her doors multiple times before going to bed, and feeling like people are watching her. She also reported feelings of helplessness, hopelessness, and worthlessness. Attention and concentration were fair and memory was appearing mostly unreliable but none were formally tested. She is alert and oriented x 3. Insight and judgment appeared limited and impulse control was impaired. Vitals/I&O/Wt Last Vital Signs Temp 98.3 F 01/26/24 06:00 Pulse 91 01/26/24 06:00 Resp 15 01/26/24 06:00 BP 101/64 01/26/24 06:00 Pulse Ox 98 01/26/24 06:00 O2 Del Method Room Air 01/26/24 06:00 Data NPU 01/24/24 11:36 01/24/24 11:36 A&P Assessment and plan (1) PTSD (post-traumatic stress disorder): (2) Alcohol use disorder: (3) Partner relational problem: (4) Parent-child relational problem: (5) Major depressive disorder: Plan Patient is a 28-year-old white female with known history of mental health and addiction issues with no past admissions who presented reporting recent diagnoses of bipolar disorder, PTSD, ADHD, and anxiety. She has a history of self-harm and suicidal ideation. She has a history of substance use and self- medication. She is currently in a volatile relationship and feels unsupported by her family. 1. Initiated Zyprexa 5 mg p.o. nightly. We discussed different medications for anxiety to consider. 2. Recommend sober living treatment after discharge at the highest level of care to which the patient is willing to commit. 3. Encourage individual, group and milieu therapies. 4. Continue every 15 minute checks for safety. 5. Evaluate for safety given 96-hour hold. Involuntary Hold Information 2 96 Hour Hold: 96 Hour Involuntary Admission: Yes 96 Hour Hold Ending Date: 01/29/24 96 Hour Hold Ending Time: 16:08 Attestations NPU 2 Medical Necessity Statement*: Inpatient hospitalization is medically necessary and deemed to ?be ?the clinically appropriate intervention ?at this time.? We will monitor/initiate medications and make changes as indicated.? The patient?s likely length of stay 3-5 days. Coding Level of Care Code Acute Code for g Fwd Diagnoses PTSD (post-traumatic stress disorder) F43.10 Alcohol use disorder F10.90 Partner relational problem Z63.0 Parent-child relational problem Z62.820 Major depressive disorder F32.9
[2024-01-26 19:42] VITALS: BP 125/78; PULSE 111; RESP 20; TEMP 36.7; O2SAT 98
[2024-01-26] MEDS: OLANZapine 5 mg TABLET PO (21:55)
[2024-01-26] MEDS: trazodone 50 mg Tablet PO (21:56)
[2024-01-27 06:00] VITALS: BP 95/62; PULSE 87; RESP 16; TEMP 36.3; O2SAT 98
[2024-01-27] MEDS: nicotine 21 mg Patch 1 PATCH TRANSDERMA (08:17)
[2024-01-27] MEDS: hyDROXYzine 25 mg Capsule 50 MG PO ×2 (08:17→18:36)
--- NOTE | 2024-01-27 08:42 | PC.NURSE ---
Patient tearful and tremulous. Patient reports anxiety about possibly missing her sons graduation today. Administered Vistaril 50mg PO to patient.
[2024-01-27] MEDS: haloperidol 5 mg Tablet PO (10:25)
[2024-01-27 12:27] LABS: Glucose Point of Care 106 mg/dL (70-110)
--- NOTE | 2024-01-27 12:32 | PC.NURSE ---
Patient reports feeling shaky. VS checked, BP: 95/58. Patient's BG 106 after dinner. Will continue to monitor
--- NOTE | 2024-01-27 12:45 | P.NPUPN_ITS ---
Subjective NPU 2 Subjective: Patient presented today reporting that she is feeling like things are going better. She reports that the medications have been effective. She reported having some angst about missing her son's kindergarten graduation was feeling that she needed to come and that she has benefited from being here. She denied any side effects to the medications and we discussed the likelihood of discharge tomorrow. Mental Status Exam 2 MSE Comments: This is an overweight versus obese white female in hospital scrubs with limited grooming and adequate eye contact. Some tattoos on exposed skin. No abnormal movements. Mostly cooperative with exam in no acute distress. Speech was slightly increased rate rate and volume. Mood described as feeling better, affect somewhat congruent. Thought process mostly organized. Thought content: Patient denied suicidal or homicidal ideation, there were no delusions reported or noted, she denied any auditory or visual hallucinations. Patient reported feeling irritable. She reported hearing voices when trying to sleep. She also reported anxiety and taking medication for it, which causes her to shake uncontrollably. She reported feeling paranoid, checking her doors multiple times before going to bed, and feeling like people are watching her. She also reported feelings of helplessness, hopelessness, and worthlessness. Attention and concentration were fair and memory was appearing mostly unreliable but none were formally tested. She is alert and oriented x 3. Insight and judgment appeared limited, but improving and impulse control was improving. Vitals/I&O/Wt Last Vital Signs Temp 97.3 F L 01/27/24 06:00 Pulse 87 01/27/24 06:00 Resp 16 01/27/24 06:00 BP 95/62 01/27/24 06:00 Pulse Ox 98 01/27/24 06:00 O2 Del Method Room Air 01/27/24 06:00 Data NPU 01/24/24 11:36 01/24/24 11:36 A&P Assessment and plan (1) PTSD (post-traumatic stress disorder): (2) Alcohol use disorder: (3) Partner relational problem: (4) Parent-child relational problem: (5) Major depressive disorder: Plan Patient is a 28-year-old white female with known history of mental health and addiction issues with no past admissions who presented reporting recent diagnoses of bipolar disorder, PTSD, ADHD, and anxiety. She has a history of self-harm and suicidal ideation. She has a history of substance use and self- medication. She is currently in a volatile relationship and feels unsupported by her family. 1. Initiated Zyprexa 5 mg p.o. nightly. She reported positive response to taking the Vistaril as needed. 2. Recommend sober living treatment after discharge at the highest level of care to which the patient is willing to commit. 3. Encourage individual, group and milieu therapies. 4. Continue every 15 minute checks for safety. 5. Evaluate for safety given 96-hour hold. 6. Discussed the likelihood of discharge tomorrow. Involuntary Hold Information 2 96 Hour Hold: 96 Hour Involuntary Admission: Yes 96 Hour Hold Ending Date: 01/29/24 96 Hour Hold Ending Time: 16:08 Attestations NPU 2 Medical Necessity Statement*: Inpatient hospitalization is medically necessary and deemed to ?be ?the clinically appropriate intervention ?at this time.? We will monitor/initiate medications and make changes as indicated.? The patient?s likely length of stay 1-3 days. Coding Level of Care Code Acute Code for [facility] Diagnoses PTSD (post-traumatic stress disorder) F43.10 Alcohol use disorder F10.90 Partner relational problem Z63.0 Parent-child relational problem Z62.820 Major depressive disorder F32.9
[2024-01-27 14:00] VITALS: BP 95/64; PULSE 105; RESP 18; TEMP 36.8; O2SAT 93
[2024-01-27] MEDS: mupirocin oint 22 gm 1 APPLIC NASAL (18:07)
[2024-01-27] MEDS: nicotine 2 mg Gum BUCCAL (19:46)
[2024-01-27 20:59] VITALS: BP 113/74; PULSE 101; RESP 18; TEMP 36.6; O2SAT 97
[2024-01-27] MEDS: docusate sodium 100 mg Capsule 200 MG PO (21:29)
[2024-01-27] MEDS: trazodone 50 mg Tablet PO (21:29)
[2024-01-27] MEDS: OLANZapine 5 mg TABLET PO (21:29)
[2024-01-28 06:00] VITALS: BP 91/53; PULSE 84; RESP 16; TEMP 36.7; O2SAT 98
[2024-01-28] MEDS: hyDROXYzine 25 mg Capsule 50 MG PO (07:39)
[2024-01-28] MEDS: mupirocin oint 22 gm 1 APPLIC NASAL (07:41)
[2024-01-28] MEDS: blistex lip oint 7 gm Tube 1 APPLIC TOPICAL (07:42)
--- NOTE | 2024-01-28 08:04 | PC.NURSE ---
PT CURRENTLY DENIES SI/HI/AH/VH. PT DENIES DEPRESSION. PT STATES THAT HE HAS SOME ANXIETY ABOUT GETTING TO LEAVE TODAY. PT ENDORSES THAT SHE IS EXCITED TO SEE HER CHILDREN ONCE MORE. PT REQUESTED PRN ANXIETY MEDICATION AND RECEIVED PRN 50 MG OF HYDROXYZINE. PT WAS COOPERATIVE WITH ASSESSMENT AND MEDICATIONS. PT CURRENT NEEDS ARE MET AT THIS TIME.
[2024-01-28] MEDS: nicotine 2 mg Gum BUCCAL ×2 (08:40→13:06)
--- NOTE | 2024-01-28 09:51 | PC.NURSE ---
PT REQUESTED PRN ANXIETY MEDICATION SHE IS ANXIOUS ABOUT GOING HOME SOON. PT RECEIVED PRN HYDROXYZINE 50 MG. UPON REASSESSMENT PT ENDORSE RELIEF. PT CURRENT NEEDS ARE MET AT THIS TIME.
--- NOTE | 2024-01-28 11:52 | W.PM.NPUDCS ---
Diagnoses at Discharge Discharge Diagnosis (1) PTSD (post-traumatic stress disorder): Status: Acute (2) Alcohol use disorder: Status: Acute (3) Partner relational problem: Status: Acute (4) Parent-child relational problem: Status: Acute (5) Major depressive disorder: Status: Acute Reason for Visit Reason for Visit: SI/HI Involuntary Hold Information 96 Hour Hold: 96 Hour Involuntary Admission: Yes 96 Hour Hold Ending Date: 01/29/24 96 Hour Hold Ending Time: 16:08 Mental Status Exam MSE Comments: This is an overweight versus obese white female in hospital scrubs with limited grooming and adequate eye contact. Some tattoos on exposed skin. No abnormal movements. Mostly cooperative with exam in no acute distress. Speech was slightly increased rate rate and volume. Mood described as feeling better, affect somewhat congruent. Thought process mostly organized. Thought content: Patient denied suicidal or homicidal ideation, there were no delusions reported or noted, she denied any auditory or visual hallucinations. Patient reported feeling irritable. She reported hearing voices when trying to sleep. She also reported anxiety and taking medication for it, which causes her to shake uncontrollably. She reported feeling paranoid, checking her doors multiple times before going to bed, and feeling like people are watching her. She also reported feelings of helplessness, hopelessness, and worthlessness. Attention and concentration were fair and memory was appearing mostly unreliable but none were formally tested. She is alert and oriented x 3. Insight and judgment appeared limited, but improving and impulse control was improving. Discharge Data Studies Completed and Pending: Completed Studies During Hospitalization Category Date Time Status CT head wo con* [id number] Stat Cat Scan 01/24/24 11:05 Completed Radiology Impressions Head CT 01/24/24 11:05 IMPRESSION: No acute pathology. Laboratory Results WBC 7.21 10^3/uL (3.2 9-11.43) 01/24/24 11:36 RBC 4.27 10^6/uL (3.8 5-5.65) 01/24/24 11:36 Hgb 11.80 g/dL (11.27 -16.99) 01/24/24 11:36 Hct 37.4 % (36-47) 01/24/24 11:36 MCV 87.6 fl (85-98) 01/24/24 11:36 MCH 27.6 pg (27-33) 01/24/24 11:36 MCHC 31.6 g/dL (30-55) 01/24/24 11:36 RDW 15.1 % (12.1-15.1 ) 01/24/24 11:36 Plt Count 236 10^3/cmm (157 -399) 01/24/24 11:36 MPV 11.6 fL (7.4-10.4 ) H 01/24/24 11:36 Neut % (Auto) 72.8 % 01/24/24 11:36 Lymph % (Auto) 19.8 % 01/24/24 11:36 [place] % (Auto) 5.8 % 01/24/24 11:36 Eos % (Auto) 0.6 % 01/24/24 11:36 Baso % (Auto) 0.7 % 01/24/24 11:36 Neut # (Auto) 5.25 10^3/uL (1.8 -7.7) 01/24/24 11:36 Lymph # (Auto) 1.4 10^3/uL (0.8- 4.8) 01/24/24 11:36 [place] # (Auto) 0.4 10^3/uL (0.2- 0.9) 01/24/24 11:36 Eos # (Auto) 0.0 10^3/uL (0.0- 0.8) 01/24/24 11:36 Baso # (Auto) 0.1 10^3/uL (0.0- 0.1) 01/24/24 11:36 Nucleated RBC % (a uto) 0 % 01/24/24 11:36 Nucleated RBCs # 0.0 /100WBC 01/24/24 11:36 Sodium 143 mmol/L (136-1 45) 01/24/24 11:36 Potassium 4.0 mmol/L (3.5-5 .1) 01/24/24 11:36 Chloride 109 mmol/L (98-10 7) H 01/24/24 11:36 Carbon Dioxide 23 mmol/L (22-29) 01/24/24 11:36 Anion Gap 15.0 (5-19) 01/24/24 11:36 BUN 8 mg/dL (6-20) 01/24/24 11:36 Creatinine 0.6 mg/dL (0.5-0. 9) 01/24/24 11:36 GFR Calculation 119.9 mL/min (90- 130) 01/24/24 11:36 Glucose 102 mg/dL (65-115 ) 01/24/24 11:36 POC Glucose 106 mg/dL (70-110 ) 01/27/24 12:22 Calculated Osmolal ity 295 mOsm/kg (285- 295) 01/24/24 11:36 Calcium 8.8 mg/dL (8.5-10 .5) 01/24/24 11:36 Total Bilirubin 0.3 mg/dL (0.15-1 .2) 01/24/24 11:36 AST 14 U/L (0-32) 01/24/24 11:36 ALT 12 U/L (0-33) 01/24/24 11:36 Alkaline Phosphata se 81 U/L (35-105) 01/24/24 11:36 Total Protein 7.7 g/dL (6.6-8.7 ) 01/24/24 11:36 Albumin 4.6 g/dL (3.5-5.2 ) 01/24/24 11:36 Globulin 3.1 g/dL (1.3-4.6 ) 01/24/24 11:36 HCG, Qual Negative (Negati ve) 01/24/24 11:08 Urine Color Colorless (Yello w) 01/24/24 11:08 Urine Appearance Clear (CLEAR) 01/24/24 11:08 Urine pH 6.5 (5-7) 01/24/24 11:08 Ur Specific Gravit y 1.015 (1.005-1.0 30) 01/24/24 11:08 Urine Protein Neg (Negative) 01/24/24 11:08 Urine Glucose (UA) Norm (Normal) 01/24/24 11:08 Urine Ketones Negative (Negati ve) 01/24/24 11:08 Urine Blood Neg (Negative) 01/24/24 11:08 Urine Nitrate Negative (Negati ve) 01/24/24 11:08 Urine Bilirubin Neg (Negative) 01/24/24 11:08 Urine Urobilinogen Norm mg/dL (Negat sonia) 01/24/24 11:08 Ur Leukocyte Delia ase Negative (Negati ve) 01/24/24 11:08 Urine RBC None /hpf (0-2) 01/24/24 11:08 Urine WBC 0-4 /hpf (0-5) H 01/24/24 11:08 Ur Squamous Epith Cells 5-10 /hpf (0-5) H 01/24/24 11:08 Amorphous Sediment Not Reportable 01/24/24 11:08 Urine Bacteria Trace /hpf (NONE) 01/24/24 11:08 Salicylates < 0.3 mg/dL (3-10 ) L 01/24/24 11:36 Urine Opiates Scre en Negative ng/mL (N egative) 01/24/24 11:08 Acetaminophen < 5.0 ug/mL (10-3 0) L 01/24/24 11:36 Ur Barbiturates Sc reen Negative ng/mL (N egative) 01/24/24 11:08 Ur Phencyclidine S crn Negative ng/mL (N egative) 01/24/24 11:08 Ur Amphetamines Sc reen Negative ng/mL (N egative) 01/24/24 11:08 U Benzodiazepines Scrn Negative ng/mL (N egative) 01/24/24 11:08 Urine Cocaine Scre en Negative ng/mL (N egative) 01/24/24 11:08 U Marijuana (THC) Screen Positive ng/mL (N egative) H 01/24/24 11:08 Ethyl Alcohol < 10 mg/dL (0-10) 01/24/24 11:36 Vitals: Last Vital Signs Temp 98.0 F 01/28/24 06:00 Pulse 84 01/28/24 06:00 Resp 16 01/28/24 06:00 BP 91/53 01/28/24 06:00 Pulse Ox 98 01/28/24 06:00 O2 Del Method Room Air 01/27/24 14:00 Discharge Plan Discharge Patient Disposition: Home Condition: Stable Prescriptions: New trazodone 50 mg Tablet 50 mg PO BEDTIME PRN (Reason: Sleep) 30 Days Qty: 30 1RF olanzapine 5 mg Tablet 5 mg PO BEDTIME 30 Days Qty: 30 1RF hydroxyzine pamoate 25 mg Capsule 50 mg PO Q6H PRN (Reason: Anxiety) 30 Days Qty: 120 1RF Discontinued acetaminophen 325 mg Tablet 1,300 mg PO QID PRN (Reason: Pain) Discharge Orders: Discharge Order (Routine); Ordered 01/28/24 Ordered By: Jerome Pena Referrals: Rg Prescott, HNP [Other] Discharge Diet: Regular Discharge Activity: Resume usual activity Patient Instructions: Opioid Safety Discharge Attestations NPU Time Spent in Discharge Care*: less than 30 min Specific Discharge Activities: Specific discharge activities: educating patient, discussing with nurse case management/social workers/dc planners, documenting/other paperwork and evaluating patient/reviewing data Coding Level of Care Code Acute Code for Chg Fwd Diagnoses PTSD (post-traumatic stress disorder) F43.10 Alcohol use disorder F10.90 Partner relational problem Z63.0 Parent-child relational problem Z62.820 Major depressive disorder F32.9
[2024-01-28 11:56] VITALS: BP 91/53; PULSE 84; RESP 16; TEMP 36.7; O2SAT 98
== END 2024-01-28 13:54 | disposition home or self-care (01) | DRG 880 ==
LOC: ER 11:05 → NP 14:01
PROVIDERS: Admitting Provider Psychiatry & Neurology Psychiatry; Emergency Provider Emergency Medicine; Visit Provider Psychiatry & Neurology Psychiatry
DX: F41.9 Anxiety disorder, unspecified (principal); R45.851 Suicidal ideations; F43.10 Post-traumatic stress disorder, unspecified; F31.9 Bipolar disorder, unspecified; F10.90 Alcohol use, unspecified, uncomplicated; Z63.0 Problems in relationship with spouse or partner; Z62.820 Parent-biological child conflict; Z91.51 Personal history of suicidal behavior
CPT/HCPCS: 36416; 70450; 80053; 80306; 80307; 81001; 81025; 82962; 85025; 93005; 97150; 97165; 99285

== ENCOUNTER 2025-01-02 14:49 | Outpatient (CLI) | payer OTHER, SELFPAY ==
--- NOTE | 2025-01-02 14:57 | US_ITS ---
WS: [id number] Ultrasound RIGHT cheek soft tissue in the area of interest INDICATION: RIGHT cheek lump TECHNIQUE: Ultrasound soft tissue in the area of concern RIGHT cheek FINDINGS: In the area of concern, there is a small incidental lymph node with a normal fatty hilum. Lymph node measures 1.0 x 0.9 x 0.6 cm. This is most likely reactive. No other suspicious abnormalities. If continued concern, or increasing in size recommend contrast-enhanced CT of the neck and face US/US soft tissue head neck [id number] IMPRESSION: See detailed discussion above
== END 2025-01-02 14:50 | disposition home or self-care (01) ==
LOC: RAD 14:51
PROVIDERS: PCP Registered Nurse; Visit Provider Nurse Practitioner Family
DX: R59.0 Localized enlarged lymph nodes (principal)
CPT/HCPCS: 76536